=== PATIENT | female | born 1985 | race Caucasian/White ===

== ENCOUNTER 2017-09-02 15:18 | Inpatient (IN) | payer OTHER ==
[~2017-09-02] VITALS: Ht 170.2 cm; Wt 77.1 kg
[~2017-09-02 15:18] MED LIST: CLON0.5T1 PO; CYCLOBENZAPR; DULO60EC; KEP500 PO; LORA-476 PO; TOP100 PO
--- NOTE | 2017-09-02 15:18 | NUR ---
Patient BIBA [facility] accompanied by [facility] and [employer] [employer], transferred to bed 7. Dr. Coates, RN and RT evaluating patient at bedside.
[2017-09-02 15:21] VITALS: BP 99/57
--- NOTE | 2017-09-02 15:22 | NUR ---
CHRIS DENISE, PHARMACIST AT [facility] AND WAS ADVISED TO OBTAIN LABS, TYLENOL LEVEL, ASPIRIN LEVEL, LIVER ENZYMES, CHEMISTRY, INR AND EKG. M.Wilmer. NOTIFIED AND AGREEABLE WITH RECOMMENDATIONS.
--- NOTE | 2017-09-02 15:31 | NUR ---
PT BIBA S/P OVERDOSE OF NORCO, SEROQUEL AND ROBAXYN. UNKNOWN DOSES TAKEN. HX SEIZURE DISORDER AND BIPOLAR DISORDER. NO N/V/D PER EMS NOTED; SKIN IS PINK/WARM/DRY; LUNGS CLEAR BL; HR EVEN AND REGULAR; NO FEVER, CP, SOB, OR COUGH AT THIS TIME; VSS; PATIENT POSITIONED FOR COMFORT; HOB ELEVATED; BEDRAILS UP X2; BED DOWN. ER MD MADE AWARE OF PT STATUS.
[2017-09-02] MEDS ORDERED: NACL 0.9% 1,000 ML IV ONE (15:35)
--- NOTE | 2017-09-02 15:44 | NUR ---
magnetic testing technician at bedside.
[2017-09-02 15:45] LABS: BASOPHILS # (AUTO) 0.4 K/uL (0.00-0.22); EOSINOPHILS # (AUTO) 0.1 K/uL (0-0.4); HEMATOCRIT 39.3 % (36-48); HEMOGLOBIN 13.4 g/dL (12.0-16.0); LYMPHOCYTES # (AUTO) 2.1 K/uL (2.5-16.5); MEAN CORPUSCULAR HEMOGLOBIN 31 pg (27-31); MEAN CORPUSCULAR HGB CONC 34 g/dL (33-37); MEAN CORPUSCULAR VOLUME 90 fL (80-94); MONOCYTES # (AUTO) 0.6 K/uL (0.8-1.0); NEUTROPHILS # (AUTO) 8.5 K/uL (1.8-7.7); PLATELET COUNT (AUTO) 231 K/uL (140-450); RED BLOOD CELL COUNT(AUTO) 4.37 MIL/uL (4.20-5.40); RED CELL DISTRIBUTION WIDTH 12.4 % (11.6-13.7); WHITE BLOOD COUNT (AUTO) 11.7 K/uL (4.8-10.8)
[2017-09-02 15:47] LABS: APPEARANCE,URINE CLEAR (CLEAR); BILIRUBIN,URINE NEGATIVE (NEGATIVE); BLOOD, URINE NEGATIVE (NEGATIVE); COLOR,URINE YELLOW (YELLOW); LEUKOCYTE ESTERASE ,URINE NEGATIVE (NEGATIVE); NITRITE, URINE NEGATIVE (NEGATIVE); UGLUCOSE NEGATIVE (NEGATIVE)
[2017-09-02 15:55] LABS: BARBITURATE, URINE NEG. ng/ml (NEG <=200); BENZODIAZEPINE, URINE NEG. ng/mL (NEG <=200); CANNABINOID, URINE NEG. ng/mL (NEG <=50); COCAINE, URINE NEG. ng/mL (NEG <=300); OPIATE, URINE POS. ng/mL (NEG <=2000); PHENCYCLIDINE SCREEN,URINE NEG. ng/mL (NEG <=25)
--- NOTE | 2017-09-02 16:01 | NUR ---
PT'S AT BEDSIDE COMMUNICATING WITH DR AMOR
[2017-09-02 16:03] LABS: ACETAMINOPHEN 6.8 ug/ml (10-30); ALBUMIN 3.6 g/dL (3.4-5.0); ANION GAP 11.3 (8-16); ASPARTATE AMINOTRANSFERASE 15 U/L (15-37); CARBON DIOXIDE 22.7 mmol/L (21-32); CHLORIDE 107 mmol/L (98-107); GFR ARICAN-AMERICAN 83 mL/min (>90); GLUCOSE 150 mg/dL (74-106); SODIUM SERUM 138 mmol/L (136-145); TOTAL BILIRUBIN 0.8 mg/dL (0.0-1.0); UREA NITROGEN, BLOOD 13 mg/dL (7-18)
[2017-09-02 16:07] LABS: SALICYLATE < 2.8 mg/dL (2.8-20.0)
--- NOTE | 2017-09-02 16:15 | NUR ---
PT UNRESPONSIVE TO PAINFUL STIMULI, PUPIL +7 LILIBETH SLUGGISH, DR AMOR AWARE, WILL CONTINUE TO MONITOR
[2017-09-02] MEDS ORDERED: QUET100T (16:16)
[2017-09-02] MEDS ORDERED: OMEP20EC6 PO (16:16)
[2017-09-02] MEDS ORDERED: CITA40TA13 PO (16:16)
[2017-09-02] MEDS ORDERED: VITA20002 PO (16:16)
[2017-09-02] MEDS ORDERED: TOP100 PO (16:16)
[2017-09-02] MEDS ORDERED: AMOX500C25 PO (16:16)
[2017-09-02] MEDS ORDERED: METH750T5 (16:16)
[2017-09-02] MEDS ORDERED: LEVE1000 PO (16:16)
--- NOTE | 2017-09-02 17:42 | NUR ---
Patient will be admitted to care of DR JIMENES. Admited to ICU. Will go to room ICU6. Belongings list completed. Report to DANIELLE MCGEE.
--- NOTE | 2017-09-02 17:56 | NUR ---
RECEIVED PATIENT PER KEVON FROM ED. NON RESPONSIVE, DOES NOT RESPOND TO PAINFUL STIMULI. RAC PERIPHERAL IV PATENT AND INTACT. FC 16FR PATENT AND INTACT TO LIGHT YELLOW URINE IN MODERATE AMOUNT. SKIN DRY AND WARM WNL, TOENAILS ARE THICKENED, NO EDEMA, WITH HAIR GROWTH AND +2 BILATERAL PEDAL PULSES. ON 02 AT 3LPM/NC. MADE COMFORTABLE IN BED. CALL LIGHT WITHIN REACH. WILL CONTINUE TO MONITOR PATIENT.
[2017-09-02 18:00] VITALS: BP 90/53
[2017-09-02] MEDS ORDERED: ONDANSETRON 4 MG/2 ML VIAL IVP PRN (18:05)
[2017-09-02] MEDS ORDERED: KCL 20 MEQ/WATER INJ PREMIX 200 ML IV ONE (18:05)
[2017-09-02] MEDS ORDERED: LORazepam 2 MG/ML VIAL IVP PRN (18:05)
[2017-09-02] MEDS ORDERED: HYDROcodone/APAP 5/325 MG 1 TAB TAB PO PRN (18:05)
[2017-09-02] MEDS ORDERED: MORPHINE SULFATE 4 MG/ML SYR IVP PRN (18:05)
[2017-09-02] MEDS ORDERED: ALBUTEROL 0.083% 2.5 MG/3 ML NEBU INH PRN (18:05)
[2017-09-02] MEDS: DEXT 5% /NACL 0.9% 1,000 ML IV SCH (18:24)
--- NOTE | 2017-09-02 18:34 | NUR ---
KAYLEN STJUSTIN WAITING FOR DR. JIMENES FOR ORDERS. RESPIRATORY ASSESSMENT DONE, NO SIGNS OF RESP DISTRESS, RR 13 HR 78, SAO2 97% BS ANTERIOR UPPER LOBE WHEEZING, HHN ALBUTEROL GIVEN IMPROVED POST HHN. BS CLEAR POST TREATMENT
--- NOTE | 2017-09-02 19:00 | NUR ---
PATIENT'S MIL AND SISTER RACHELLE AT BEDSIDE.
--- NOTE | 2017-09-02 19:30 | NUR ---
RECEIVED REPORT FROM EVERARDO SANTOS. PATIENT IS SLEEPING IN BED AND UNRESPONSIVE. PUPILS ARE DILATED TO 7MM AND SLUGGISH. PATIENT IS ON 3LPM NASAL CANNULA. BREATH SOUNDS ARE CLEAR TO AUSCULTATION. BOWEL SOUNDS ARE HYPOACTIVE. THERE IS A MEDRANO CATHETER IN PLACE DRAINING TO GRAVITY WITH MODERATE AMOUNT OF CLEAR YELLOW URINE NOTED. THERE IS A #20 IN THE RIGHT AC RECEIVING D5NS AT 100 ML/HR. SITE IS DRY, INTACT, AND PATENT. PATIENT IS ALSO RECEIVING K-RIDER 20MEQ KCL AT 50 ML/HR RELATED TO POTASSIUM LEVEL 3.0. HOB AT 30 DEGREES WITH BED IN LOW POSITION. CONTINUE TO MONITOR PATIENT.
--- NOTE | 2017-09-02 19:50 | NUR ---
SCDS IN PLACE FOR VTE PROPHYLAXIS. SEIZURE PRECAUTIONS IN PLACE R/T PATIENT'S HX OF SEIZURE DISORDER.
[2017-09-02 20:00] VITALS: BP 93/52
--- NOTE | 2017-09-02 20:45 | NUR ---
RESPIRATORY THERAPIST HUGH AT BEDSIDE. MINIMAL ORAL SECRETIONS SUCTIONED. NO SIGNS OF DISTRESS NOTED. WILL CONTINUE TO MONITOR PATIENT.
--- NOTE | 2017-09-02 21:05 | NUR ---
PATIENT SLEEPING IN BED. UNABLE TO OPEN EYES TO NAME. WITHDRAWS TO PAIN. NO SIGNS OF SOB OR RESPIRATORY DISTRESS NOTED. HOB AT 30 DEGREES WITH BED IN LOW POSITION. CONTINUE TO MONITOR PATIENT.
--- NOTE | 2017-09-02 21:45 | NUR ---
NYA FROM [facility] CALLED AND ASKED TO VERIFY ACETAMINOPHEN RESULTS OF 6.8 AT 1535. LAB RESULT VERIFIED. WILL ORDER REPEAT ACETAMINOPHEN LAB DRAW.
[2017-09-02 22:00] VITALS: BP 109/67
--- NOTE | 2017-09-02 22:48 | NUR ---
PATIENT ATTEMPTING TO GET OUT OF BED. PATIENT ASKED WHERE SHE IS. ORIENTED PATIENT TO HER SURROUNDINGS. INSTRUCTED PATIENT TO STAY IN BED AND REST R/T DX 5150 SECONDARY TO OVERDOSE. PATIENT CONTINUING TO GET OUT OF BED. ADMINISTERED 0.5MG ATIVAN IVP PRN. CONTINUE TO MONITOR PATIENT.
--- NOTE | 2017-09-02 23:02 | NUR ---
SPOKE TO NYA C/O POISON [facility] AND REPORTED RESULTS OF REPEATED ACETAMINOPHEN LAB RESULT OF 0.5. LET NYA KNOW THAT PATIENT ATTEMPTED TO GET OUT OF BED EARLIER AND ASKED ABOUT HER SURROUNDINGS. NYA SAID NO NEED FOR PATIENT TO BE ADMINISTERED MUCOMYST SINCE LAB VALUE TRENDING DOWN AND TO CONTINUE TO MONITOR PATIENT.
[2017-09-03] VITALS (10 sets, daily range): BP systolic 91–121; BP diastolic 51–83
--- NOTE | 2017-09-03 00:15 | NUR ---
PATIENT SLEEPING IN BED. VSS AND PATIENT IS AFEBRILE. HOB AT 30 DEGREES WITH BED IN LOW POSITION. CONTINUE TO MONITOR PATIENT.
[2017-09-03] MEDS: DEXT 5% /NACL 0.9% 1,000 ML IV SCH ×3 (04:05→17:11)
--- NOTE | 2017-09-03 04:25 | NUR ---
#20 IN RIGHT AC INFILTRATED. INSERTED NEW IV CATHETERS. #22 IN RIGHT AC AND #24 IN LEFT WRIST. BOTH SITES ARE DRY, INTACT, AND PATENT. NO SIGNS OF DISTRESS FROM PATIENT. CONTINUE TO MONITOR.
--- NOTE | 2017-09-03 04:50 | NUR ---
PATIENT REQUESTED CRACKERS AND WATER. PROVIDED 1 CUP OF WATER AND PACK OF SALTINE CRACKERS. TOLERATED WELL. HOB AT 30 DEGREES WITH BED IN LOW POSITION. CONTINUE TO MONITOR PATIENT.
--- NOTE | 2017-09-03 07:18 | NUR ---
RECEIVED REPORT FROM HAND SHAKER RN. PT IS AWAKE, AAO X 3. FOLLOWS COMMAND. DID NOT RECALL WHAT HAPPENED YESTERDAY. PUPILS ARE PERRL, 3 MM IN DIAMETER. SEIZURE PRECAUTIONS IN PLACE DUE TO HX OF SEIZURE DISORDER. SR ON MONITOR. LUNGS ARE CLEAR TO AUSCULTATION. BOWEL SOUNDS HYPOACTIVE. PERIPHERAL IV 20G TO RIGHT AC INTACT AND ASYMPTOMATIC. ANOTHER PERIPHERAL IV 20G TO LEFT WRIST PATENT AND FLOWING ORDERED IV FLUID. MEDRANO CATH IN PLACE DRAINING CLEAR YELLOW URINE TO GRAVIY DRAINAGE BAG. NO SOB OR ACUTE DISTRESS NOTED AT THIS TIME. NEEDS WELL ATTENDED. CALL LIGHT WITHIN REACH. WILL CONTINUE TO MONITOR.
[2017-09-03 08:00] LABS: HEMATOCRIT 39.4 % (36-48); HEMOGLOBIN 13.4 g/dL (12.0-16.0); MEAN CORPUSCULAR HEMOGLOBIN 31 pg (27-31); MEAN CORPUSCULAR HGB CONC 34 g/dL (33-37); MEAN CORPUSCULAR VOLUME 90 fL (80-94); PLATELET COUNT (AUTO) 240 K/uL (140-450); RED BLOOD CELL COUNT(AUTO) 4.37 MIL/uL (4.20-5.40); RED CELL DISTRIBUTION WIDTH 12.4 % (11.6-13.7); WHITE BLOOD COUNT (AUTO) 12.3 K/uL (4.8-10.8)
[2017-09-03 08:08] LABS: EOSINOPHILS % (MANUAL) 2 % (0-4); LYMPHOCYTES % (MANUAL) 20 % (20-46); MONOCYTES % (MANUAL) 7 % (5-12)
[2017-09-03 08:10] LABS: MAGNESIUM 1.9 mg/dL (1.8-2.4); PHOSPHORUS 1.9 mg/dL (2.5-4.9)
[2017-09-03 08:23] LABS: ANION GAP 11.9 (8-16); CARBON DIOXIDE 22.1 mmol/L (21-32); CREATININE 0.8 mg/dL (0.6-1.3)
--- NOTE | 2017-09-03 09:50 | NUR ---
PATIENT HAS BEEN SCREENED AND CATEGORIZED HIGH NUTRITION RISK. PATIENT WILL BE SEEN WITHIN 1-2 DAYS OF ADMISSION. 09/03/17-09/04/[address]
--- NOTE | 2017-09-03 10:00 | NUR ---
CHECKED ON PT. PT TALKING TO SISTER AT BEDSIDE. NO SIGNS OF ACUTE DISTRESS AT THIS TIME. WILL CONTINUE TO MONITOR.
--- NOTE | 2017-09-03 13:00 | NUR ---
DR. FRIEDMAN CAME TO SEE AND EXAMINE PT. WILL FOLLOW UP WITH NEW ORDERS.
--- NOTE | 2017-09-03 13:00 | NUR ---
DR. FRIEDMAN MADE AWARE OF POTASSIUM LEVEL OF 3.0. WILL FOLLOW UP WITH NEW ORDERS.
--- NOTE | 2017-09-03 13:56 | NUR ---
CM NOTE INITIAL REVIEW FAXED TO [facility] [phone] PH# ASHLI [phone] [facility] [phone] #[phone] TRACKING# [id number] Addendum: 09/03/17 at 1408 by Jane Meraz SENT INQUIRY TO [facility] [employer] [facility] FAX# [phone] ATTN: MELQUIADES # [phone]
[2017-09-03] MEDS ORDERED: MAGNESIUM OXIDE 400 MG TAB PO SCH (14:00)
--- NOTE | 2017-09-03 14:11 | NUR ---
DC'ED MEDRANO CATHETER ORDERED WITH TIP INTACT. PT TOLERATED WELL.
--- NOTE | 2017-09-03 14:15 | NUR ---
09/03/17 RD INITIAL ASSESSMENT COMPLETED PLEASE REFER TO NUTRITION ASSESSMENT UNDER CARE ACTIVITY FOR ESTIMATED NUTRITIONAL NEEDS. 1. CONTINUE REGULAR DIET 2. RD TO FOLLOW-UP 3-5 DAYS, MODERATE RISK SHANDA WATTERS RD
--- NOTE | 2017-09-03 16:29 | NUR ---
DR. SCHMIDT ACTUARIAL TECHNICIAN PSYCHOLOGIST CALLED BACK, STATED THAT SHE WILL BE HERE IN 2 HOURS TO SEE AND EVALUATE PATIENT. PATIENT MADE AWARE.
--- NOTE | 2017-09-03 17:03 | NUR ---
PT COMPLAINED OF NAUSEA. ADMINISTERED ORDERED ZOFRAN. WILL REASSESS AND CONTINUE TO MONITOR.
--- NOTE | 2017-09-03 18:25 | NUR ---
ON-CALL PSYCHOLOGIST DR. SCHMIDT AT BEDSIDE SPEAKING WITH PT. WILL FOLLOW UP WITH ORDERS.
--- NOTE | 2017-09-03 19:41 | NUR ---
REPORT GIVEN TO NIGHT RN FOR CONTINUITY OF CARE. PATIENT IN STABLE CONDITION.
--- NOTE | 2017-09-03 19:45 | NUR ---
RECEIVED PT IN BED A&OX4. PERRL. LUNG SOUNDS CLEAR. S1&S2 HEART SOUNDS HEARD. BILATERAL WATCH REPAIRER APPRENTICE EQUAL. BOWEL SOUNDS HEARD FROM ALL 4 QUADRANTS. VS STABLE. DENIES PAIN OR DISCOMFORT. PT NOTED WITH DC ORDER WITH OUTPATIENT COUNSELING FOR MENTAL AND PSYCHIATRIC PROGRAM. PT MADE AWARE OF THE DC ORDER AND WILL PREPARE DC INSTRUCTIONS AND ASSIST HER WITH DISCHARGE HOME. ALL SAFETY PRECAUTIONS ARE IN PLACE AT THIS TIME.
--- NOTE | 2017-09-03 20:30 | NUR ---
DC INSTRUCTIONS PROVIDED AND TO FOLLOW UP WITH OUTPATIENT MENTAL/PSYCHIATRIC COUNSELING PROGRAM WITH RESOURCE LIST AFTER DISCHARGE. PT VERBALIZED UNDERSTANDING. OFFERED PNA AND FLU VAC AND PT REFUSED. RISKS AND BENEFITS EXPLAINED. IV DISCONTINUED FROM LEFT WRIST #20 AND RIGHT AC #20 AND BOTH CANNULA INTACT. PT TOLERATED WELL. SECURITY WAS CALLED TO BRING PT'S BELONGINGS AND CHECKED THE BELONGINGS WITH PT. PT WAS ASSISTED WITH HER CLOTHES [facility]. PT CALLED HER TO PICK HER UP. HOSPITAL NAME BAND WAS REMOVED. PT VS STABLE AND DENIES ANY PAIN OR DISCOMFORT.
--- NOTE | 2017-09-03 20:45 | NUR ---
PT DISCHARGED HOME WITH HER VIA PRIVATE CAR WITH STABLE CONDITION. DC INSTRUCTIONS AND ALL BELONGINGS WERE TAKEN WITH PT. PT LEFT IN STABLE CONDITION.
--- NOTE | 2017-09-04 08:14 | NUR ---
PT. NOT SEEN, DISCHARGED
[2017-09-04] MEDS ORDERED: POTASSIUM CHLORIDE 10 MEQ TABER PO SCH (09:00)
== END 2017-09-03 20:45 | disposition home or self-care (01) | DRG 812 ==
LOC: MED 15:18 → MIC 17:33
PROVIDERS: ADMIT Internal Medicine Pulmonary Disease; ATTEND Internal Medicine Pulmonary Disease
DX: T43.592A Poisoning by other antipsychotics and neuroleptics, intentional self-harm, initial encounter (principal); J96.00 Acute respiratory failure, unspecified whether with hypoxia or hypercapnia; G92 Toxic encephalopathy; F31.9 Bipolar disorder, unspecified; T42.8X2A Poisoning by antiparkinsonism drugs and other central muscle-tone depressants, intentional self-harm, initial encounter; G40.909 Epilepsy, unspecified, not intractable, without status epilepticus; F41.0 Panic disorder [episodic paroxysmal anxiety]; F12.90 Cannabis use, unspecified, uncomplicated; Z88.8 Allergy status to other drugs, medicaments and biological substances; Z91.5 Personal history of self-harm; Z88.6 Allergy status to analgesic agent; Z86.73 Personal history of transient ischemic attack (TIA), and cerebral infarction without residual deficits
CPT/HCPCS: 36415; 36600; 71010; 80048; 80053; 80305; 81003; 81025; 82550; 82803; 82948; 83735; 84100; 84484; 85025; 87081; 93005; 94640; 96360; 99285; G0480; G0482; J2060; J2405; J3480; J7030; J7042; J7613; Q0092